=== PATIENT | female | born 1950 | race Caucasian/White ===

== ENCOUNTER 2020-02-12 14:14 | Outpatient (CLI) | payer MEDICARE, SELFPAY ==
--- NOTE | ~2020-02-12 | DEXA_ITS ---
Bone Density Report Name: Ghislaine Fan Age: 69 Sex: Female Ethnicity: White Date of : 1950 Indication: monitoring treatment; Referring Provider: PHYSICIAN NOT ON STAFF Study: Bone densitometry was performed. Exam Date: February 12, 2020 Accession number: [id number] Bone Density: Region BMD T-score Z-score Classification AP Spine (L1-L4) 0.887 -1.5 0.6 Osteopenia Femoral Neck (Left) 0.625 -2.0 -0.3 Osteopenia Total Hip (Left) 0.737 -1.7 -0.2 Osteopenia Total Hip Bilateral Avg 0.728 -1.8 -0.3 Osteopenia Femoral Neck (Right) 0.714 -1.2 0.5 Osteopenia Total Hip (Right) 0.717 -1.8 -0.4 Osteopenia World Health Organization criteria for BMD impression classify patients as: Normal (T-score at or above -1.0), Osteopenia (T-score between -1.0 and -2.5), or Osteoporosis (T-score at or below -2.5). 10-year Fracture Risk: FRAX not reported because: Treated for osteoporosis Previous Exams: Region Exam Age BMD T-score BMD Change BMD Change Date g/cm2 vs Baseline vs Previous AP Spine(L1-L4) 02/12/2020 69 0.887 -1.5 -0.191(-17.7%) -0.191(-17.7%) 08/11/2003 52 1.078 0.3 Total Hip(Left) 02/12/2020 69 0.737 -1.7 -0.158(-17.7%) -0.158(-17.7%) 08/11/2003 52 0.895 -0.4 Total Hip(Right) 02/12/2020 69 0.717 -1.8 -0.167(-18.9%) -0.167(-18.9%) 08/11/2003 52 0.883 -0.5 *Denotes significance at 95% confidence level, LSC for AP Spine = 0.022 g/cm2, LSC for Total Hip = 0.027 g/cm2 Clinical Information Provided by Patient: Is being treated for osteoporosis Has used the following medications: Evista (i.e. raloxifene), Vitamin D, Calcium Patient maximum height was 65.5 Menopause Age: 52 Onset of menses at age 12 Number of children 2 Impression: The patient has low bone mass, based on the Left Femoral Neck T-score. No significant bone loss was observed. Discussion: PATIENT UNDER TREATMENT WITH NO SIGNIFICANT BMD LOSS SINCE LAST EXAM. In an untreated patient, BMD typically declines with age. A lack of decline or gain is usually a sign that treatment is efficacious and fracture risk is reduced. It is important to ask patients whether they are taking their medications and to encourage continued and appropriate compliance with their osteoporosis therapies to reduce fracture risk. It is also important to review their risk factors and encourage appropriate calcium and vitamin D intakes, exercise, fall prevention and other lifestyle measures. Follow-Up: Consider a
--- NOTE | ~2020-02-12 | MM_ITS ---
EXAMINATION: MM screening harjit BI w jagjit HISTORY: Screening mammogram, family history of breast cancer in her mother. TECHNIQUE: Craniocaudal and mediolateral oblique 3-D tomosynthesis images were obtained and synthetic 2-D images were generated. CAD analysis was submitted and interpreted. COMPARISON: 01/30/2019, 01/09/2018, 12/27/2016 BREAST PARENCHYMAL COMPOSITION: The breasts are almost entirely fatty. FINDINGS: There is no evidence of suspicious mass, calcification, or architectural distortion to sugg est malignancy in either breast. There has been no suspicious interval change. IMPRESSION: 1. No mammographic evidence of malignancy. 2. Recommend routine screening mammography in one year. BI-RADS Category 1: Negative Reviewed, dictated and finalized at location A.
== END 2020-02-12 14:15 | disposition home or self-care (01) ==
LOC: ANHIMG 14:25
DX: Z12.31 Encounter for screening mammogram for malignant neoplasm of breast (principal); Z78.0 Asymptomatic menopausal state; M85.88 Other specified disorders of bone density and structure, other site; M85.852 Other specified disorders of bone density and structure, left thigh; M85.851 Other specified disorders of bone density and structure, right thigh
CPT/HCPCS: 77063; 77067; 77080

== ENCOUNTER → 2020-03-09 11:14 | Outpatient (CLI) | payer MEDICARE, SELFPAY ==
--- NOTE | ~2020-03-09 | XR_ITS ---
XR hip RT min 2V DATE: 03/09/2020 12:00 INDICATION: Right hip pain TECHNIQUE: AP and lateral views COMPARISON: None FINDINGS: There is osteoarthritic spurring of the acetabulum and femoral head compatible with moderat e right hip osteoarthritis. There is minimal right hip joint space narrowing. No fracture, dislocation, avascular necrosis or bone destruction is evident. There is nonspecific sclerosis at the left side of the pubic symphysis. Alignment is preserved at the pubic symphysis and included right sacroiliac joint. Moderate osteopenia. IMPRESSION: Moderate right hip osteoarthritis Reviewed, dictated and finalized at location A.
== END ==
DX: M89.49 Other hypertrophic osteoarthropathy, multiple sites (principal); M25.551 Pain in right hip; M16.11 Unilateral primary osteoarthritis, right hip
CPT/HCPCS: 73502

== ENCOUNTER → 2021-02-14 13:53 | Outpatient (CLI) | payer MEDICARE, SELFPAY ==
--- NOTE | ~2021-02-14 | MM_ITS ---
EXAMINATION: MM screening harjit BI w jagjit HISTORY: Screening mammogram, family history of breast cancer in her mother. TECHNIQUE: Craniocaudal and mediolateral oblique 3-D tomosynthesis images were obtained and synthetic 2-D images were generated. CAD analysis was submitted and interpreted. COMPARISON: 02/22/2020, 01/30/2019, 01/09/2018 BREAST PARENCHYMAL COMPOSITION: There are scattered areas of fibroglandular density. FINDINGS: There is no evidence of suspicious mass, calcification, or architectural distortion to sugg est malignancy in either breast. There has been no suspicious interval change. IMPRESSION: 1. No mammographic evidence of malignancy. 2. Recommend routine screening mammography in one year. BI-RADS Category 1: Negative Reviewed, dictated and finalized at location A.
== END ==
DX: Z12.31 Encounter for screening mammogram for malignant neoplasm of breast (principal)
CPT/HCPCS: 77063; 77067

== ENCOUNTER 2022-05-19 15:20 | Outpatient (CLI) | payer MEDICARE, SELFPAY ==
--- NOTE | ~2022-05-19 | MM_ITS ---
EXAMINATION: MM screening harjit BI w jagjit HISTORY: Screening TECHNIQUE: Craniocaudal and mediolateral oblique 3-D tomosynthesis images were obtained and synthetic 2-D images were generated. CAD analysis was submitted and interpreted. COMPARISON: Comparison to multiple prior studies sequentially, with oldest reviewed study dated 12/27. BREAST PARENCHYMAL COMPOSITION: The breasts are almost entirely fatty. FINDINGS: There is no evidence of suspicious mass, calcification, or architectural distortion to sugg est malignancy in either breast. There has been no suspicious interval change. IMPRESSION: 1. No mammographic evidence of malignancy. 2. Recommend routine screening mammography in one year. BI-RADS Category 1: Negative Reviewed, dictated and finalized at location A.
--- NOTE | ~2022-05-19 | DEXA_ITS ---
Bone Density Report Name: GILBERT HARDING Age: 71 Sex: Female Ethnicity: White Date of : 1950 Indication: osteopenia; height loss; postmenopausal Referring Provider: FALGUNI, AMNA Geiger Study: Bone densitometry was performed. Exam Date: May 19, 2022 Accession number: [id number] Bone Density: Region BMD T-score Z-score Classification AP Spine(L1-L4) 0.924 -1.1 1.1 Osteopenia Femoral Neck (Left) 0.683 -1.5 0.4 Osteopenia Total Hip (Left) 0.715 -1.9 -0.3 Osteopenia Femoral Neck (Right) 0.734 -1.0 0.9 Normal Total Hip (Right) 0.714 -1.9 -0.3 Osteopenia Total Hip Mean 0.715 -1.9 -0.3 Osteopenia World Health Organization criteria for BMD impression classify patients as: Normal (T-score at or above -1.0), Osteopenia (T-score between -1.0 and -2.5), or Osteoporosis (T-score at or below -2.5). 10-year Fracture Risk(1): Major Osteoporotic Fracture 10% Hip Fracture 1.7% Reported Risk Factors: [place] (), Neck BMD=0.683, BMI=26.0 (1) FRAX(R) Version 3.08. Fracture probability calculated for an untreated patient. Fracture probability may be lower if the patient has received treatment. Previous Exams: Region Exam Age BMD T-score BMD Change BMD Change Date g/cm2 vs Baseline vs Previous AP Spine (L1-L4) 05/19/2022 71 0.924 -1.1 0.037 (4.1%)* 0.037 (4.1%)* 02/12/2020 69 0.887 -1.5 Total Hip(Left) 05/19/2022 71 0.715 -1.9 -0.022 (-3.0%) -0.022 (-3.0%) 02/12/2020 69 0.737 -1.7 Total Hip(Right) 05/19/2022 71 0.714 -1.9 -0.002 (-0.3%) -0.002 (-0.3%) 02/12/2020 69 0.717 -1.8 *Denotes significance at 95% confidence level, LSC for AP Spine = 0.022 g/cm2, LSC for Total Hip = 0.027 g/cm2 Clinical Information Provided by Patient: Has used the following medications: Evista (i.e. raloxifene), Calcium Patient maximum height was 66 Menopause Age: 52 No regular weight bearing exercise Drinks caffeinated beverages Onset of menses at age 12 Number of children 2 Impression: The patient has low bone mass, based on the Left Total Hip T-score. The patient has an estimated ten-year risk of hip fracture of 1.7% and an estimated ten-year risk of major fracture of 10%, based on the WHO FRAX algorithm. No significant bone loss was observed. Discussion: BONE DENSITY IS LOW AT ONE OR MORE SKELETAL SITES. This patient's lowest T-score is low at one or more skeletal sites. It meets the World Health Organization'
== END 2022-05-19 15:21 | disposition home or self-care (01) ==
PROVIDERS: Visit Provider Internal Medicine Geriatric Medicine
DX: Z12.31 Encounter for screening mammogram for malignant neoplasm of breast (principal); Z78.0 Asymptomatic menopausal state; M85.88 Other specified disorders of bone density and structure, other site; M85.852 Other specified disorders of bone density and structure, left thigh; M85.851 Other specified disorders of bone density and structure, right thigh
CPT/HCPCS: 77063; 77067; 77080

== ENCOUNTER 2022-11-13 12:30 | Outpatient (RCR) | payer MEDICARE, SELFPAY ==
--- NOTE | 2022-08-29 11:00 | PTOPEVAL1 ---
Assessment and note entered by Narda Nix DPT Evaluation Information Assessment Status Evaluation Subjective Information Pt reports previous pelvic floor therapy, has not been keeping up with her exercises and symptoms are worsening again. Pt reports urinary urgency, worse at night but in the day as well. Can hold urine less than 1 minute at night. Urinates 4 times a day, at night 1-4 times. Will get some urge incontinence on the way to the bathroom at night. Denies stress incontinence. Denies pain with urination. BM usually 1-2 times a day, denies pain. Pt is not sexually active currently, reports mild pain in the past due to aging. Denies pain with pelvic exam or pap smear. Pt has been 2 times, 2 vaginal deliveries without complications. Uterine ablation about 30 years ago , tubal ligation 30 years ago, ovary removed 2004. Reported Pain Level Pain Score 0: Self Report Assessment PT Clinical Summary The patient is presenting to skilled therapy with a progressing history of urge incontinence. She presents with significantly decreased pelvic floor muscle strength and endurance, as well as overall decreased core and LE strength which are contributing to her symptoms. She will benefit from therapy to address these impairments and safely decrease incontinence. Plan of Care Interventions Manual Therapy,Neuro Re-education,Patient/ Caregiver Education,Therapeutic Activities, Therapeutic Exercise,Self-Care/Home Management PT Services Indicated Yes Treatment Frequency and 1 time a week for 4 weeks Duration These treatments will address the objective and functional deficits as defined above. The patient will be advanced safely and appropriately in order for the patient to progress towards his/her prior level of function. Additional exercises will be introduced and as well as a comprehensive home exercise program upon discharge, if needed, ?to ensure carryover of functional gains achieved in the clinic. This treatment plan has been reviewed and agreement upon by the patient.
--- NOTE | 2022-10-02 13:12 | PTOPPROG ---
Assessment and note entered by Narda Nix DPShaka Evaluation Information Assessment Status Progress Subjective Information Pt reports less incontinence than when she started therapy, more difficulty at night still. Still reports difficulty with urgency at night. hardly any incontinence during the day, thinks she has had incontinence 2 nights in the last week. Plan of Care Interventions Manual Therapy,Neuro Re-education,Patient/ Caregiver Education,Therapeutic Activities, Therapeutic Exercise,Self-Care/Home Management PT Services Indicated Yes Treatment Frequency and 1 time every other week for 3 more visits Duration These treatments will address the objective and functional deficits as defined above. The patient will be advanced safely and appropriately in order for the patient to progress towards his/her prior level of function. Additional exercises will be introduced and as well as a comprehensive home exercise program upon discharge, if needed, ?to ensure carryover of functional gains achieved in the clinic. This treatment plan has been reviewed and agreement upon by the patient.
--- NOTE | 2022-11-13 13:03 | PTOPDC ---
Assessment and note entered by Narda Nix DPT Evaluation Information Assessment Status Discharge Subjective Information Pt reports she has noticed some improvement. Has not worn a pad at night time much recently. Only noticing incontinence at night, 1-2 times a night where it had been 2-3 times. Reported Pain Level Pain Score 0: Self Report Assessment PT Clinical Summary The patient has made limited progress in therapy at this time and discharge is recommended. She reports some functional improvements but continues to display the same decreased pelvic floor strength and endurance. She has been educated in ways to continue progressing independently and to contact PT and/or MD as needed. Plan of Care PT Services Indicated No
== END 2022-11-13 14:49 | disposition home or self-care (01) ==
LOC: ANHGOSHPT 12:30
DX: N39.41 Urge incontinence (principal)
CPT/HCPCS: 97110; 97112; 97161; 97530

== ENCOUNTER 2023-10-24 17:32 | Emergency (ER) | payer MEDICARE, SELFPAY ==
--- NOTE | ~2023-10-24 | XR_ITS ---
EXAMINATION: XR elbow RT min 3V INDICATION: Right elbow pain, initial encounter TECHNIQUE: Four views of the right elbow are obtained. COMPARISON: None FINDINGS: There is an acute, traumatic, closed, oblique fracture of the olecranon which extends to th e olecranon fossa of the ulna. No additional fracture is identified. There is a large joint effusion. There is posterior soft tissue swelling overlying the elbow. IMPRESSION: 1. Acute fracture of the olecranon extending to the olecranon fossa. Reviewed, dictated and finalized at location F.
[2023-10-24 17:49] VITALS: BP 146/74; PULSE 86; RESP 16; TEMP 36.6; O2SAT 100
--- NOTE | 2023-10-24 17:49 | ED.GENADULT ---
HPI - General Adult General Chief complaint: Extremity Injury, Upper Stated complaint: fall,upper extremity injury Time Seen by Provider: 10/24/23 17:50 Source: patient Mode of arrival: ambulatory Limitations: no limitations History of Present Illness HPI narrative: 72-year-old female presented for complaint of injuries to posterior scalp and right elbow following a fall today. She states she slipped in water while walking a dog, landed on the right elbow, and struck her head on the concrete. Denies LOC. Denies significant head pain, neck pain, dizziness, vision changes, nausea or vomiting. cleaned the scalp wound but continues to have some bleeding. Reports the right elbow has been swelling, and reports decreased ROM to the elbow. Denies numbness, tingling, or weakness of the right arm. Has not taken anything for pain Related Data Home Medications Medication Instructions Recorded Confirmed amlodipine 5 mg tablet mg 10/24/23 aspirin 81 mg chewable tablet 81 mg PO DAILY 10/24/23 10/24/23 buspirone 5 mg tablet mg 10/24/23 fluticasone propionate 50 intranasal 10/24/23 mcg/actuation nasal spray,suspension levocetirizine 5 mg tablet mg 10/24/23 raloxifene 60 mg tablet mg 10/24/23 terbinafine HCl 250 mg tablet mg 10/24/23 tolterodine 4 mg capsule,extended mg PO 10/24/23 release 24 hr trazodone 50 mg tablet mg 10/24/23 venlafaxine 150 mg mg PO 10/24/23 capsule,extended release 24 hr Allergies Allergy/AdvReac Type Severity Reaction Status Date / Time hydrochlorothiazide Allergy Rash Verified 10/24/23 17:50 amoxicillin [From Augmentin] AdvReac Diarrhea Verified 10/24/23 17:50 clavulanic acid AdvReac Diarrhea Verified 10/24/23 17:50 [From Augmentin] Review of Systems Review of Systems: CONSTITUTIONAL: Denies fever, chills EYES: Denies visual changes CARDIOVASCULAR: Denies chest pain, palpitations, or edema. RESPIRATORY: Denies cough or dyspnea. GASTROINTESTINAL: Denies abdominal pain, nausea, vomiting, or diarrhea. SKIN: Reports scalp wound MUSCULOSKELETAL: Reports right elbow pain and swelling Denies back pain, neck pain, or myalgia. NEUROLOGIC: Denies headache, dizziness, numbness, tingling, or weakness. All systems reviewed & are unremarkable except as noted in HPI and below PMFSH Past Medical History Medical History (Updated 10/24/23 @ 19:20 by Shirley Mcmullen APRN) Anxiety CVA (cerebral vascular accident) Diverticulosis GERD (gastroesophageal reflux disease) HTN (hypertension) Mitral valve prolapse Rectal polyp Surgical History Surgical History (Updated 10/24/23 @ 18:23 by Shirley Mcmullen APRN) H/O dilation and curettage Comments At time of signature, I have reviewed and agree with nursing past medical, surgical, social and family history unless otherwise noted. Please see nursing chart for further information. There is no relevant family history pertinent to the presenting complaint Exam Narrative: GENERAL: Well-appearing, and in no acute distress. HEAD: Posterior scalp abrasion approx 0.5cm, small amount active bleeding EYES: PERRLA, conjunctivae clear NECK: Supple. No VPT. No paraspinal tenderness. Full ROM. CHEST: Speaks in full sentences. No respiratory distress. HEART: Regular rate and rhythm. Normal and equal peripheral pulses. EXTREMITIES: Right elbow with limited range of motion with flexion/extension, endorses pain with flexion beyond 90? and pain with extension beyond 135?. Large effusion to right elbow with ecchymosis, No elbow point tenderness to areas surrounding effusion. RUE with has normal strength and sensation, alignment normal, pulse palpable and equal bilaterally, skin warm, dry, pink. Capillary refill less than 3 seconds. SKIN: Warm, dry, approx 0.5cm diameter superficial abrasion right elbow. NEURO: Alert and oriented x3. PSYCH: Normal mood and affect Course Course Emergency Course: Patient is aware of diagnosis, u
[2023-10-24 17:52] VITALS: BP 146/74; PULSE 86; RESP 16; TEMP 36.6; O2SAT 100
[2023-10-24] MEDS: ACETAMINOPHEN 500 MG TABLET 1000 MG PO (18:14)
== END 2023-10-24 19:30 | disposition home or self-care (01) ==
PROVIDERS: Emergency Provider Nurse Practitioner Family; PCP Internal Medicine Geriatric Medicine
DX: S52.021A Displaced fracture of olecranon process without intraarticular extension of right ulna, initial encounter for closed fracture (principal); W01.0XXA Fall on same level from slipping, tripping and stumbling without subsequent striking against object, initial encounter; Y93.K1 Activity, walking an animal; S00.01XA Abrasion of scalp, initial encounter; K21.9 Gastro-esophageal reflux disease without esophagitis; I10 Essential (primary) hypertension; I34.1 Nonrheumatic mitral (valve) prolapse; Z86.73 Personal history of transient ischemic attack (TIA), and cerebral infarction without residual deficits; Z79.82 Long term (current) use of aspirin
CPT/HCPCS: 29105; 73080; 99214; A4565; A9270; G0463